=== PATIENT | female | born 1975 | race Caucasian/White ===

== ENCOUNTER 2023-04-23 08:48 | Inpatient (IN) | payer BC ==
[~2023-04-23] VITALS: Ht 157.5 cm; Wt 48.8 kg
[2023-04-23] VITALS (14 sets, daily range): BP systolic 100–126; BP diastolic 48–78; TEMP 99–99.6
--- NOTE | 2023-04-23 09:15 | NUR ---
THE PATIENT BIBS FOR C/O DIZZINESS X 1 WEEK, "MENSES STARTED 04/03/2023 UP TO NOW". THE PATIENT IS ALERT AND ORIENTED X4. IN ROOM AIR AND DENIES SOB. RESPIRATION REGULAR AND UNLABORED. THE PATIENT IS ATTACHED TO THE MONITOR. WARM BLANKET PROVIDED FOR COMFORT. WILL CONTINUE TO MONITOR THE PATIENT.
--- NOTE | 2023-04-23 09:21 | NUR ---
THE PATIENT BIBS FOR C/O DIZZINESS X 1 WEEK, "MENSES STARTED 04/03/2023 UP TO NOW". THE PATIENT ALERT AND ORIENTED X4. IN ROOM AIR AND DENIES SOB. RESPIRATION REGULAR AND UNLABORED. THE PATIENT IS ATTACHED TO THE MONITOR. WARM BLANKET PROVIDED FOR COMFORT. WILL CONTINUE TO MONITOR THE PATIENT.
[2023-04-23] MEDS ORDERED: IV NS 0.9% 1,000 ML BAG IV ONE (10:00)
--- NOTE | 2023-04-23 10:07 | NUR ---
MOVE SHEET SUBMITTED.
--- NOTE | 2023-04-23 10:12 | NUR ---
us tech at the bedside
--- NOTE | 2023-04-23 10:13 | NUR ---
THE PATIENT UNABLE TO PROVIDE URINE AT THIS TIME.
--- NOTE | 2023-04-23 10:49 | NUR ---
covid swab done and sent to the lab
[2023-04-23 10:50] LABS: THYROID STIMULATING HORMONE 3.039 uIU/mL (0.358-3.74)
[2023-04-23 11:01] LABS: CALCIUM, SERUM 8.5 mg/dL (8.5-10.1); CARBON DIOXIDE 23 mmol/L (21-32); CHLORIDE 106 mmol/L (98-107); CREATININE 0.6 mg/dL (0.6-1.3); GLUCOSE 123 mg/dL (74-106); POTASSIUM 3.5 mmol/L (3.5-5.1); SODIUM SERUM 137 mmol/L (136-145); UREA NITROGEN, BLOOD 6 mg/dL (7-18)
[2023-04-23 11:07] LABS: ALANINE AMINOTRANSFERASE 15 U/L (12-78); ALBUMIN 3.1 g/dL (3.4-5.0); ALKALINE PHOSPHATASE 69 U/L (46-116); ASPARTATE AMINOTRANSFERASE 12 U/L (15-37); BILIRUBIN,TOTAL 0.2 mg/dL (0.2-1.0); TOTAL PROTEIN, SERUM 5.9 g/dL (6.4-8.2)
--- NOTE | 2023-04-23 11:12 | NUR ---
URINE COLLECTED AND SENT TO THE LAB
[2023-04-23 11:24] LABS: BASOPHILS # (AUTO) 0.1 K/uL (0.0-0.2); BASOPHILS % (AUTO) 0.8 % (0.0-2.0); EOSINOPHILS % (AUTO) 0.1 % (0.0-6.0); LYMPHOCYTES % (AUTO) 13.1 % (20.0-44.0); MEAN CORPUSCULAR HGB CONC 32 g/dl (31.0-36.0); MEAN CORPUSCULAR VOLUME 67 fL (82-100); MONOCYTES # (AUTO) 0.7 K/uL (0.1-1.30); MONOCYTES % (AUTO) 8.8 % (2.0-12.0); NEUTROPHILS # (AUTO) 5.8 K/uL (1.8-8.9); NEUTROPHILS % (AUTO) 77.2 % (43.0-81.0); PLATELET COUNT (AUTO) 358 K/uL (150-450); WHITE BLOOD COUNT (AUTO) 7.5 K/uL (4.3-11.0)
[2023-04-23 11:25] LABS: BILIRUBIN,DIRECT 0.1 mg/dL (0.0-0.2)
[2023-04-23 11:28] LABS: RED BLOOD CELL COUNT(AUTO) 1.54 MIL/uL (4.0-5.2)
[2023-04-23 11:29] LABS: HEMATOCRIT 10 % (33-45); HEMOGLOBIN 3.3 g/dL (11.5-14.8)
--- NOTE | 2023-04-23 11:47 | NUR ---
CALLED DR. OBRIEN [phone] VILLASENOR.
[2023-04-23] MEDS ORDERED: IV NS 0.9% 1,000 ML IV ONE (12:00)
[2023-04-23 12:24] LABS: BILIRUBIN,URINE NEGATIVE (NEGATIVE); COLOR,URINE YELLOW (YELLOW); LEUKOCYTE ESTERASE ,URINE TRACE (NEGATIVE); NITRITE, URINE NEGATIVE (NEGATIVE); PROTEIN,URINE 2+ mg/dl (NEGATIVE); UGLUCOSE NEGATIVE (NEGATIVE); UROBILINOGEN,URINE 0.2 EU/dL (0.2)
[2023-04-23] MEDS ORDERED: medroxyPROGESTERone ACET 5 MG TABLET PO STA (12:26)
[2023-04-23 12:31] LABS: BACTERIA,URINE Rare /HPF (None Seen); SQUAMOUS EPITHELIAL CELL,UR MANY /HPF (None Seen); WBC,URINE 0-2 /HPF (0-3)
--- NOTE | 2023-04-23 12:44 | NUR ---
BLOOD TRANSFUSION GOING. WILL CONTINUE TO MONITOR THE PATIENT.
[2023-04-23] MEDS ORDERED: MAG HYDROX/AL HYDROX/SIMETH 30 ML UDC PO PRN (13:30)
[2023-04-23] MEDS ORDERED: ZOLPIDEM TARTRATE 5 MG TABLET PO PRN (13:30)
[2023-04-23] MEDS ORDERED: Z GUARD REMEDY 4 OZ OINT TP PRN (13:30)
[2023-04-23] MEDS ORDERED: ACETAMINOPHEN 325 MG TABLET PO PRN (13:30)
[2023-04-23] MEDS ORDERED: ONDANSETRON HCL/PF 4 MG/2 ML VIAL IVP PRN (13:30)
[2023-04-23] MEDS ORDERED: MAGNESIUM HYDROXIDE 30 ML UDC PO PRN (13:30)
[2023-04-23 13:37] LABS: LYMPHOCYTES % (MANUAL) 12 % (16-48); MONOCYTES % (MANUAL) 5 % (0-11.0); NEUTROPHILS % (MANUAL) 83 (42-76)
--- NOTE | 2023-04-23 13:54 | NUR ---
THE PATIENT IS SERVED LUNCH. TOLERATES PROVIDED MEAL WELL. WILL CONTINUE TO MONITOR THE PATIENT.
--- NOTE | 2023-04-23 14:43 | NUR ---
GOT BED 259 ADMITTING INFORMED.
--- NOTE | 2023-04-23 14:48 | NUR ---
REPORT GIVEN TO NURSE ASTORGA FOR LIZETT
--- NOTE | 2023-04-23 15:57 | NUR ---
THE PATIENT IS TRANSFERED TO ASSIGNED ROOM IN STABLE CONDITION AND PER ACLS.
[2023-04-23] MEDS ORDERED: CYANOCOBALAMIN 1,000 MCG/ML VIAL IM ONE (16:00)
--- NOTE | 2023-04-23 16:05 | NUR ---
PATIENT RECEIVED IN STABLE CONDITION. ALERT AND ORIENTED X4. ON ROOM AIR TOLERATING WELL. ON TELE MONITOR AND SPO2 MONITOR. IV ACCESS AT LAC 20G, INTACT AND PATENT. ABLE TO AMBULATE TO RESTROOM UNASSISTED. ONE BAG OF PRBC ADMINISTERED IN ER. SECOND BAG STARTED IN ICU AT 1715. PATIENT HAS TOTAL OF 3 BAGS OF PRBC TO BE ADMINISTERED. SAFETY MEASURES IN PLACE, WITH BED IN LOWEST LOCKED POSITION, SIDE RAILS UP X2, BEDSIDE TABLE AND CALL LIGHT WITHIN REACH. COMMODE BY BEDSIDE. WILL CONTINUE TO MONITOR.
--- NOTE | 2023-04-23 17:15 | NUR ---
SECOND BAG OF PRBC STARTED.
--- NOTE | 2023-04-23 20:00 | NUR ---
Received patient AA/OX4.VSS.ST 120'S.H/H 3.3 with 2nd unit PRBC infusing.Denies any discomfort. Will continue to monitor.call light at bedside for safety.
[2023-04-24] VITALS (22 sets, daily range): BP systolic 99–129; BP diastolic 53–84; TEMP 98.2–98.9
--- NOTE | 2023-04-24 00:30 | NUR ---
3 Units PRBC transfused with adverse reaction noted.VSS.
[2023-04-24 04:05] LABS: BASOPHILS # (AUTO) 0.1 K/uL (0.0-0.2); BASOPHILS % (AUTO) 1.6 % (0.0-2.0); EOSINOPHILS % (AUTO) 0.4 % (0.0-6.0); HEMATOCRIT 22 % (33-45); HEMOGLOBIN 7.1 g/dL (11.5-14.8); LYMPHOCYTES # (AUTO) 0.4 K/uL (0.8-4.8); LYMPHOCYTES % (AUTO) 5.5 % (20.0-44.0); MEAN CORPUSCULAR HGB CONC 33 g/dl (31.0-36.0); MEAN CORPUSCULAR VOLUME 78 fL (82-100); MONOCYTES # (AUTO) 0.8 K/uL (0.1-1.30); MONOCYTES % (AUTO) 12.2 % (2.0-12.0); NEUTROPHILS # (AUTO) 5.2 K/uL (1.8-8.9); NEUTROPHILS % (AUTO) 80.3 % (43.0-81.0); PLATELET COUNT (AUTO) 221 K/uL (150-450); RED BLOOD CELL COUNT(AUTO) 2.76 MIL/uL (4.0-5.2); WHITE BLOOD COUNT (AUTO) 6.5 K/uL (4.3-11.0)
[2023-04-24 04:18] LABS: CREATININE 0.4 mg/dL (0.6-1.3); MAGNESIUM 2.1 mg/dL (1.8-2.4); PHOSPHORUS 3.4 mg/dL (2.5-4.9); POTASSIUM 4.1 mmol/L (3.5-5.1)
[2023-04-24 04:54] LABS: LYMPHOCYTES % (MANUAL) 31 % (16-48); MONOCYTES % (MANUAL) 8 % (0-11.0); NEUTROPHILS % (MANUAL) 61 (42-76)
--- NOTE | 2023-04-24 06:27 | NUR ---
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
--- NOTE | 2023-04-24 08:00 | NUR ---
RN NOTES RECEIVED PATIENT IN THE BED A/O X4, NO ACUTE RESPIRATORY DISTRESS, VSS, REFUSED PAIN. USING BEDSIDE COMMODE. NO DIZZINES NOTED. TOLERATED BREAKFAST WELL. SEEN HOSPITALIST, AND GET NEW ORDER ONE MORE UNIT OF BLOOD TO BE INFUSED. AFTER TRANSFUSION PATIENT WILL DOWNGRADE MED/SURGE UNIT. VSS. NEEDS ATTENDED AND ANTICIPATED, DUE MEDICATION ADMINISTERED. CALL LIGHT WITHIN TO REACH. WILL FOLLOW UP.
[2023-04-24] MEDS ORDERED: PANTOPRAZOLE 40 MG VIAL IV SCH (09:00)
[2023-04-24] MEDS ORDERED: medroxyPROGESTERone ACET 5 MG TABLET PO SCH (09:00)
--- NOTE | 2023-04-24 11:34 | NUR ---
rn notes Started one unit of blood transfusion 60 ml/hr at this time. patient a/o x4, Hgl level is 7.1. vs taken bp 114/74, p-92, r-12, o2-99 RA, T-98.2F. patient denied pain, no respiratory distress, family next to the bed. patient has no vaginaly bleeding. using bedside commode. call light within to reach. will follow up.
--- NOTE | 2023-04-24 11:50 | NUR ---
RN NOTES PATIENT STABLE NO ACUTE RESPIRATORY DISTRESS, DENIED PAIN. VSS BP 115/65, P-92, R-22, O2-100, T-98.6F. INCREASED BLOOD INFUSION @120 ML/HR. WILL FOLLOW UP.
[2023-04-24] MEDS ORDERED: MEDR5TAB PO (12:12)
[2023-04-24] MEDS ORDERED: FERR325T23 PO (12:12)
--- NOTE | 2023-04-24 15:22 | NUR ---
rn notes finished blood transfusion at this time patient denied pain, no s/s of any reaction, no sob, bp- 129/84, p-88, r-20, o2-100% RA, T-98.2. get order to H/H after one Hr via hospitalist. order taken and carried out.
[2023-04-24 16:11] LABS: HEMOGLOBIN 9.2 g/dL (11.5-14.8)
--- NOTE | 2023-04-24 18:30 | NUR ---
wilderness guide notes patient d/c home self care at this time. med reconciliation and discharge order reviewed and explained to the patient. patient verbalized understanding. belonging with the patient. revoved iv access. patient stable, vs wnl. patient sign paperwork. medication electronically was sended via md. patient will follow PCP, and OB. escorted patient to the lobby for safety. 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
== END 2023-04-24 18:26 | disposition home or self-care (01) | DRG 760 ==
LOC: ER 09:30 → ICU 15:22
PROVIDERS: ADMIT Nurse Practitioner Acute Care; ATTEND Nurse Practitioner Acute Care
PROC: 30233N1 Transfusion of Nonautologous Red Blood Cells into Peripheral Vein, Percutaneous Approach (ICD-10-PCS; principal; 2023-04-23)
DX: N80.03 Adenomyosis of the uterus (principal); D62 Acute posthemorrhagic anemia; N92.0 Excessive and frequent menstruation with regular cycle; N93.8 Other specified abnormal uterine and vaginal bleeding; Z20.822 Contact with and (suspected) exposure to COVID-19
CPT/HCPCS: 36415; 76856-TC; 80048-TC; 80076-TC; 81001; 82607-TC; 82962-TC; 83540-TC; 83605-TC; 83735-TC; 84100-TC; 84443-TC; 84702-TC; 85025-TC; 85027-TC; 85730-TC; 86850-TC; 87040-TC; 87081-TC; C9113; C9803; G0378; J3420; J7030; J7050; P9016